=== PATIENT | male | born 1975 | race Caucasian/White ===

== ENCOUNTER 2020-10-03 17:42 | Emergency (ER) | payer OTHER ==
[2020-10-03 18:37] LABS: HEMOGLOBIN 16.3 gm/dl (14.0-17.5); RED BLOOD COUNT 5.28 M/UL (4.20-5.50); WHITE BLOOD COUNT 10.1 K/UL (4.5-11.0)
[2020-10-03 18:55] LABS: BUN/CREATININE RATIO 21 (0-10)
[2020-10-03] MEDS ORDERED: AUGMENTIN 875-1 EACH PO (21:50)
[2020-10-03] MEDS ORDERED: ZOFRAN4 MG PO (21:50)
== END 2020-10-03 22:30 | disposition home or self-care (01) ==
LOC: ER1 17:42
PROVIDERS: Emergency Medicine
DX: K52.9 Noninfective gastroenteritis and colitis, unspecified (principal); F17.210 Nicotine dependence, cigarettes, uncomplicated
CPT/HCPCS: 80053; 82272; 85025; 85610; 99284; Q9967